=== PATIENT | male | born 1950 | race Caucasian/White ===

== ENCOUNTER 2017-09-26 09:03 | Day surgery (SDC) | payer MEDICARE, BC ==
[~2017-09-26] VITALS: Ht 185.4 cm; Wt 82.5 kg
[~2017-09-26 09:03] MED LIST: CELE200 PO; LEVO-T150 MCG PO; VITAMIN C500 MG PO
== END 2017-09-26 22:39 | disposition home or self-care (01) ==
LOC: ORSCMMR 09:03 → ORD 10:00 → ORSCMMR 22:39
PROVIDERS: Internal Medicine Gastroenterology
PROC: 0DBE8ZX Excision of Large Intestine, Via Natural or Artificial Opening Endoscopic, Diagnostic (ICD-10-PCS; principal; 2017-09-26 10:00)
DX: R19.7 Diarrhea, unspecified (principal); K63.89 Other specified diseases of intestine; Z86.010 Personal history of colon polyps; E03.9 Hypothyroidism, unspecified; Z79.899 Other long term (current) drug therapy
CPT/HCPCS: 88305; J7030

== ENCOUNTER 2018-10-11 08:50 | Day surgery (SDC) | payer MEDICARE, BC ==
[~2018-10-11] VITALS: Ht 182.9 cm; Wt 78.2 kg
[~2018-10-11 08:50] MED LIST changes: +PROBIOTIC PO
--- NOTE | 2018-10-11 09:44 | NUR ---
Ambulatory in Day Surgery History, Chart, Medications and Allergies reviewed before start of procedure.Lungs clear T/O to Auscultation. Patient States Post-Procedure ride home has been arranged.
--- NOTE | 2018-10-11 10:24 | NUR ---
up to bathroom at this time
--- NOTE | 2018-10-11 12:18 | NUR ---
INTO STEP VIA [facility]. PT A&OX3. REPORTS 05/23 RIGHT LOWER QUADRANT DISCOMFORT. 4X4 AND CLEAR, OCCLUSIVE DRESSING IN PLACE. NO NOTED BLEEDING OR HEMATOMA. PT DENIES NAUSEA. ICE CHIPS GIVEN-TOLERATED WELL.
--- NOTE | 2018-10-11 13:00 | NUR ---
PT AMBULATED TO [facility] WITH STANDBY ASSIST ONLY. TOLERATED WELL. PT ABLE TO VOID A SMALL AMOUNT OF URINE AT THAT TIME. DISCHARGE INSTRUCTIONS REVIEWED. PT SON OLEG GIVEN RX FOR OXYCODONE TO TAKE TO [facility]. PT DENIES NEED FOR PAIN MED AT THIS TIME. AWAITING PT SON ARRIVAL FOR DISCHARGE TO HOME.
--- NOTE | 2018-10-11 13:09 | NUR ---
PT DISCHARGED TO HOME. OUT VIA WHEELCHAIR WITH BELONGINGS AND DISCHARGE INSTRUCTIONS ON HAND.
== END 2018-10-11 13:10 | disposition home or self-care (01) ==
LOC: ORSCMMR 08:50 → ORD 10:15 → ORSCMMR 10:15
PROVIDERS: Surgery
PROC: 0YU50JZ Supplement Right Inguinal Region with Synthetic Substitute, Open Approach (ICD-10-PCS; principal; 2018-10-11 10:15)
DX: K40.90 Unilateral inguinal hernia, without obstruction or gangrene, not specified as recurrent (principal); E03.9 Hypothyroidism, unspecified; Z79.899 Other long term (current) drug therapy
CPT/HCPCS: C1781; J0690; J1100; J1885; J2405; J2704; J3010; J7120

== ENCOUNTER 2018-10-13 17:29 | Emergency (ER) | payer MEDICARE, BC ==
[~2018-10-13] VITALS: Ht 185.4 cm; Wt 79.4 kg
[2018-10-13 19:07] LABS: Source, Urine Catheter
[2018-10-13 19:13] LABS: Bilirubin, Urine Neg (Neg); Blood, Urine 2+ (Neg); Glucose Qualitative, Urine Neg (Neg); Ketones, Urine Neg (Neg); Leukocyte Esterase, Urine Neg (Neg); Nitrite, Urine Neg (Neg); Protein, Urine Neg (Neg); Urobilinogen, Urine NORM (Normal)
[2018-10-13 19:26] LABS: Appearance, Urine Clear (Clear); Color, Urine Yellow (P-Yellow)
[2018-10-13 19:28] LABS: Bacteria Rare /hpf; Squamous Epithelial Cells Not Seen /hpf (Few); White Blood Cells, Urine 0-2 /hpf (0-5)
== END 2018-10-13 19:53 | disposition home or self-care (01) ==
LOC: ER 17:29
PROVIDERS: Emergency Medicine
DX: R33.9 Retention of urine, unspecified (principal); K91.870 Postprocedural hematoma of a digestive system organ or structure following a digestive system procedure; Z88.1 Allergy status to other antibiotic agents; Z87.891 Personal history of nicotine dependence
CPT/HCPCS: 51702; 51798; 81001; 99283-25

== ENCOUNTER → 2025-01-07 | Outpatient (CLI) | payer MEDICARE, BC | END | disposition home or self-care (01) | LOC: LAB 17:31 → LAB SHORT 17:31 | DX: R59.0 Localized enlarged lymph nodes (principal) | CPT/HCPCS: 87070; 87075; 87205 ==